=== PATIENT | female | born 1960 | race Caucasian/White ===

== ENCOUNTER 2019-12-22 21:10 | Emergency (ER) | payer OTHER ==
--- NOTE | 2019-12-22 21:55 | ER Document Report ---
ED Medical Screen (RME) - General Chief Complaint: High Blood Pressure Stated Complaint: BLOOD PRESSURE ISSUES Time Seen by Provider: 12/22/19 21:34 Notes: 59 year old female presents today for elevated blood pressure of 200/110 after not taking benicar 5mg and HCTZ 25mg for 2 days. Her daughter noticed that her left eye had a subconjunctival hemorrhage and she took her blood pressure which was 200/100, so she took 5 mg of Benicar, 30 minutes later took another 5 mg of Benicar and then her HCTZ. Patient states she is feeling very anxious. States that last time when she was not taking her blood pressure medication couple years ago she had a nosebleed that was hard to control. denies any cp, sob, n/v/d, n/t down arms or legs. pt does not take any anticoagulant therapy. I have greeted and performed a rapid initial assessment of this patient. A comprehensive ED assessment and evaluation of the patient, analysis of test results and completion of the medical decision making process will be conducted by additional ED providers. PHYSICAL EXAMINATION: GENERAL: Well-appearing, well-nourished and in no acute distress. HEAD: Atraumatic, normocephalic. EYES: Pupils equal round extraocular movements intact, conjunctiva are normal. L subconjunctiva hemorrhage NECK: Normal range of motion CV: s1, s2 regular LUNGS: No respiratory distress Physical Exam - Vital signs Vitals: Temp Pulse Resp BP Pulse Ox 98.4 F 115 H 20 178/78 H 93 12/22/19 21:22 12/22/19 21:22 12/22/19 21:22 12/22/19 21:22 12/22/19 21:22 Course - Vital Signs Vital signs: Temp Pulse Resp BP Pulse Ox 98.4 F 115 H 20 178/78 H 93 12/22/19 21:22 12/22/19 21:22 12/22/19 21:22 12/22/19 21:22 12/22/19 21:22
[2019-12-22 22:50] LABS: APPEARANCE,URINE CLEAR; BILIRUBIN,URINE NEGATIVE (NEGATIVE); COLOR,URINE YELLOW; GLUCOSE, URINE NEGATIVE (NEGATIVE); KETONES,URINE NEGATIVE (NEGATIVE); LEUKOCYTE ESTERASE,URINE NEGATIVE (NEGATIVE); NITRITE,URINE NEGATIVE (NEGATIVE); PROTEIN,URINE NEGATIVE (NEGATIVE); URINE SPECIFIC GRAVITY 1.012; UROBILINOGEN,URINE NEGATIVE mg/dL (<2.0)
[2019-12-22 22:51] LABS: ABSOLUTE BASOPHILS # (AUTO) 0.1 10^3/uL (0.0-0.2); ABSOLUTE EOSINOPHILS # (AUTO) 0.2 10^3/uL (0.0-0.6); ABSOLUTE LYMPHOCYTES (AUTO) 2.1 10^3/uL (0.5-4.7); ABSOLUTE MONOCYTES (AUTO) 0.8 10^3/uL (0.1-1.4); ABSOLUTE NEUT (AUTO) 7.2 10^3/uL (1.7-8.2); BASOPHILS % (AUTO) 0.9 % (0-2); EOSINOPHILS % (AUTO) 1.8 % (0-6); LYMPHOCYTES % (AUTO) 20.6 % (13-45); MEAN CORPUSCULAR HEMOGLOBIN 20.7 pg (27.0-33.4); MEAN CORPUSCULAR HGB CONC 32.5 g/dL (32.0-36.0); MONOCYTES % (AUTO) 7.4 % (3-13); PLATELET COUNT 323 10^3/uL (150-450); RED BLOOD COUNT 5.81 10^6/uL (3.72-5.28); RED CELL DISTRIBUTION WIDTH 14.7 % (11.5-14.0); SEGMENTED NEUTROPHILS % (AUTO) 69.3 % (42-78); TOTAL CELLS COUNTED % (AUTO) 100 %; WHITE BLOOD COUNT 10.3 10^3/uL (4.0-10.5)
[2019-12-22 22:55] LABS: MEAN CORPUSCULAR VOLUME 64 fl (80-97)
[2019-12-22 23:06] LABS: ALBUMIN 4.7 g/dL (3.5-5.0); ALKALINE PHOSPHATASE 94 U/L (38-126); ANION GAP 12 (5-19); ASPARTATE AMINO TRANSFERASE 32 U/L (14-36); BILIRUBIN,DIRECT 0.3 mg/dL (0.0-0.4); BILIRUBIN,TOTAL 0.5 mg/dL (0.2-1.3); BLOOD UREA NITROGEN 25 mg/dL (7-20); CALCIUM 10.1 mg/dL (8.4-10.2); CARBON DIOXIDE 26 mmol/L (22-30); CHLORIDE 101 mmol/L (98-107); GLUCOSE 130 mg/dL (75-110); POTASSIUM 3.9 mmol/L (3.6-5.0); TOTAL PROTEIN 7.9 g/dL (6.3-8.2)
[2019-12-22 23:10] LABS: ANISOCYTOSIS SLIGHT; OVALOCYTES SLIGHT; PLATELET COMMENT ADEQUATE; POIKILOCYTOSIS SLIGHT; POLYCHROMASIA SLIGHT; TEAR DROP CELLS SLIGHT
--- NOTE | 2019-12-22 23:27 | ER Document Report ---
ED Blood Pressure Problem - General Chief Complaint: High Blood Pressure Stated Complaint: BLOOD PRESSURE ISSUES Time Seen by Provider: 12/22/19 21:34 Notes: CHIEF COMPLAINT: Hypertension HPI: 59-year-old female with hypertension history presenting for hypertension today. Patient forgot to take her blood pressure medication for the last 2 days and noticed her blood pressure was elevated today. Also noticed some blood in the left eye. No vision change. No headache. Patient states she felt a little lightheaded earlier today but ate and then felt better. No chest pain no shortness of breath. No abdominal pain. Denies other complaints at this time. Patient states that she did take a double dose of her Benicar before coming to the emergency department tonight ROS: See HPI - all other systems were reviewed and are otherwise negative Constitutional: no fever Eyes: no drainage, no blurred vision, positive subconjunctival hemorrhage ENT: no runny nose, no sore throat Cardiovascular: no chest pain Resp: no SOB, no cough GI: no vomiting, no diarrhea, no abdominal pain : no dysuria Integumentary: no rash Allergy: no hives Musculoskeletal: no extremity pain or swelling Neurological: no numbness/tingling, no weakness MEDICATIONS: I agree with the patient medications as charted by the RN. ALLERGIES: I agree with the allergies as charted by the RN. PAST MEDICAL HISTORY/PAST SURGICAL HISTORY: Reviewed and agree as charted by RN. SOCIAL HISTORY: Reviewed and agree as charted by RN. FAMILY HISTORY: No significant familial comorbid conditions directly related to patient complaint EXAM: Reviewed vital signs as charted by RN. CONSTITUTIONAL: Alert and oriented and responds appropriately to questions. Well-appearing; well-nourished HEAD: Normocephalic; atraumatic EYES: PERRL; Conjunctivae noted to have a small subconjunctival hemorrhage medial and inferior aspect of the left eye, sclerae non-icteric ENT: normal nose; no rhinorrhea; moist mucous membranes; pharynx without lesions noted, no uvula edema or deviation, no tonsillar hypertrophy, phonation normal NECK: Supple without meningismus; non-tender; no cervical lymphadenopathy, no masses CARD: RRR; no murmurs, no clicks, no rubs, no gallops; symmetric distal pulses RESP: Normal chest excursion without splinting or tachypnea; breath sounds clear and equal bilaterally; no wheezes, no rhonchi, no rales, pulse oximetry 99% room air not hypoxic ABD/GI: Normal bowel sounds; non-distended; soft, non-tender, no rebound, no guarding; no palpable organomegaly or masses. BACK: The back appears normal and is non-tender to palpation, there is no CVA tenderness EXT: Normal ROM in all joints; non-tender to palpation; no cyanosis, no effusions, no edema SKIN: Normal color for age and race; warm; dry; good turgor; no acute lesions noted NEURO: Moves all extremities equally; Motor and sensory function intact. Gait is normal. CN II through XII grossly intact. Strength equal 5/5 bilateral upper and lower extremities. Sensation intact able bilateral upper and lower extremities. PSYCH: The patient's mood and manner are appropriate. Grooming and personal hygiene are appropriate. MDM: 59-year-old female presenting essentially for checkup after not taking her blood pressure medication for 2 days and having elevated blood pressure at home today. Small subconjunctival hemorrhage in the left eye. She has asymptomatic otherwise at this time. Did take her blood pressure medication prior to coming to the emergency department. Screening labs and CT imaging placed by triage process - Related Data Allergies/Adverse Reactions: Penicillins Allergy (Verified 12/22/19 23:22) Home Medications: benicar, HCTZ Past Medical History - Social History Smoking Status: Never Smoker Family History: Reviewed & Not Pertinent - Past Medical History Cardiac Medical History: Reports: Hx Hypertension Past Surgical History: Reports: Hx Section Physical Exam - Vital signs Vitals: Temp Pulse Resp BP Pulse Ox 98.4 F 115 H 20 178/78 H 93 12/22/19 21:22 12/22/19 21:22 12/22/19 21:22 12/22/19 21:22 12/22/19 21:22 Course - Re-evaluation Re-evalutation: 12/23/19 00:58 CT imaging does not show acute findings labs do not show acute findings will discharge home to continue on blood pressure medication follow-up PCP - Vital Signs Vital signs: Temp Pulse Resp BP Pulse Ox 98.4 F 115 H 16 166/83 H 98 12/22/19 21:22 12/22/19 21:22 12/22/19 23:07 12/23/19 00:01 12/23/19 00:01 - Laboratory Result Diagrams: 12/22/19 22:25 12/22/19 22:25 Laboratory results interpreted by me: 12/22/19 12/22/19 12/22/19 22:25 22:25 22:25 RBC 5.81 H MCV 64 L MCH 20.7 L RDW 14.7 H BUN 25 H Glucose 130 H ALT 38 H Urine Blood SMALL H Discharge - Discharge Clinical Impression: Subconjunctival hemorrhage of left eye Hypertension Qualifiers: Hypertension type: essential hypertension Qualified Code(s): I10 - Essential (primary) hypertension Condition: Stable Disposition: HOME, SELF-CARE Additional Instructions: Continue to take your blood pressure medications as previously prescribed follow-up with your primary care provider for reevaluation of symptoms call for appointment Forms: Elevated Blood Pressure
--- NOTE | 2019-12-23 00:46 | RADIOLOGY REPORT (SQ) ---
EXAM DESCRIPTION: CT head without contrast CLINICAL HISTORY: 59 years Female, elevated BP 200/110, L subconjunctival hemorrhage COMPARISON: None. TECHNIQUE: Axial images of the head were performed without the use of intravenous contrast, with sagittal and coronal reformatted images. This exam was performed according to our departmental dose-optimization program which includes use of Automated Exposure Control, adjustment of the mA and/or kV according to patient size and/or use of iterative reconstruction technique. FINDINGS: No evidence of acute hemorrhage or infarct. No evidence of mass or hydrocephalus. IMPRESSION: No acute finding.
[2019-12-23 01:09] VITALS: BP 166/90
[2019-12-23 13:46] LABS: PATH REVIEW PATHOLOGIST REVIEWED
--- NOTE | 2019-12-24 17:53 | EKG REPORT ---
SEVERITY:- ABNORMAL ECG - SINUS RHYTHM PROBABLE LEFT ATRIAL ABNORMALITY LEFT VENTRICULAR HYPERTROPHY : Confirmed by: Williams Day MD 24-Dec-2019 17:52:26
== END 2019-12-23 01:06 | disposition home or self-care (01) ==
LOC: EDBD → ER 21:10
DX: H11.32 Conjunctival hemorrhage, left eye (principal); I10 Essential (primary) hypertension; T50.2X6A Underdosing of carbonic-anhydrase inhibitors, benzothiadiazides and other diuretics, initial encounter; R42 Dizziness and giddiness
CPT/HCPCS: 36415; 70450; 80053; 81001; 84484; 85025; 93005; 93010; 99284